=== PATIENT | male | born 1980 | race American Indian/Alaskan Native ===

== ENCOUNTER 2016-07-06 09:06 | Emergency (ER) | payer BC ==
[2016-07-06] MEDS ORDERED: NORMAL SALINE 10 ML SYRINGE FLUSH IVP PRN (09:15)
[2016-07-06] MEDS ORDERED: Sodium Chloride 0.9% 1,000 ML PRIMARY IV ONE (09:15)
[2016-07-06 09:25] LABS: BASOPHILS # (AUTO) 0.03 10*3/UL; BASOPHILS % (AUTO) 0.4 % (0-1); EOSINOPHILS % (AUTO) 0.4 % (0-8); HEMATOCRIT 47.3 % (42.0-52.0); HEMOGLOBIN 16.3 g/dL (14.0-18.0); IMM GRAN % (AUTO) 0.7 % (0-5); IMM GRAN# (AUTO) 0.05 10*3/UL; LYMPHOCYTES % (AUTO) 21.4 % (10-50); MEAN CORPUSCULAR HEMOGLOBIN 28.2 PG (27-31); MEAN CORPUSCULAR HGB CONC 34.5 g/dL (33-37); MONOCYTES # (AUTO) 0.12 10*3/UL (0.3-0.8); MONOCYTES % (AUTO) 1.6 % (5-15); NEUTROPHILS # (AUTO) 5.64 10*3/UL; NEUTROPHILS % (AUTO) 75.5 % (50-80); RDW COEFFICIENT OF VARIATION 14.9 % (11.5-14.5); RED BLOOD COUNT 5.77 10^6/uL (4.70-6.10); WHITE BLOOD COUNT 7.47 10^3/uL (4.8-10.8)
[2016-07-06 09:28] VITALS: RESP 24; TEMP 97.4
[2016-07-06 09:28] LABS: PLATELET MORPHOLOGY COMMENT NORMAL MORPHOLOGY (NORM)
[2016-07-06 09:31] LABS: ASPARTATE AMINO TRANSFERASE 58 IU/L (21-57); BILIRUBIN,TOTAL 0.3 mg/dL (0.3-1.2); BLOOD UREA NITROGEN 9 mg/dL (7-22); CALCIUM 8.1 mg/dL (8.7-10.7); CHLORIDE 112 meq/L (98-112); CREATININE 0.9 mg/dL (0.70-1.50); EST GLOMERULAR FILTRATION > 60 (>60 ml/min/1.73m(2)); GLUCOSE 152 mg/dL (78-110); POTASSIUM 4.1 meq/L (3.8-5.2); SODIUM 149 meq/L (135-145); TOTAL PROTEIN 7.8 g/dL (6.1-8.0)
--- NOTE | 2016-07-06 09:31 | EKG ---
[address] [address] Measurements Intervals [place] Rate: 95 P: 52 [place]: 150 QRS: 85 QRSD: 94 T: 34 QT: 347 QTc: 400 Interpretive Statements SINUS RHYTHM NONSPECIFIC T-WAVE ABNORMALITY No previous ECG available for comparison Electronically Signed On 07-07-16 11:54:36 MST by Stefan Cifuentes [email or web address]
[2016-07-06 09:55] LABS: SERUM ALCOHOL 428 mg/dL (0-10)
[2016-07-06 10:44] LABS: BILIRUBIN,URINE NEGATIVE (NEG); CLARITY,URINE CLEAR (CLEAR); GLUCOSE, URINE (UA) NEGATIVE (NEG); LEUKOCYTE ESTERASE ,URINE NEGATIVE (NEG); NITRATE,URINE NEGATIVE (NEG); OCCULT BLOOD,URINE MODERATE (NEG); PH,URINE 5.5 (5.0-8.5); PROTEIN,URINE NEGATIVE (NEG); UROBILINOGEN,URINE 0.2 EU/dL (0.2)
[2016-07-06] MEDS ORDERED: Sodium Chloride 0.9% 1,000 ML, Magnesium Sulfate 2gm (Premix) 50 ML with Multivitamin I... IV ONE ×5 (10:45)
[2016-07-06 10:46] LABS: URINE SAMPLE TYPE CATH SPECIMEN
--- NOTE | 2016-07-06 10:56 | DI ---
CT HEAD W/O CONTRAST,07/06/2016 9:17 AM: Clinical History: In paired level of consciousness. Previous Exam: None at this facility. Findings: Multiple helically acquired CT images are obtained through the brain without contrast, and demonstrat e a soft tissue density filling the left maxillary sinus. The ventricles and other CSF containing spaces are normal and symmetric. There is no mass, hemorrhage or midline shift. Surrounding soft tissue and osseous structures are unremarkable. Impression: No acute intracranial pathology. Soft tissue density filling the left maxillary sinus most consistent with maxillary sinusitis. Correl ate clinically.
[2016-07-06 10:59] LABS: CANNABINOID SCREEN,URINE NEGATIVE (NEG); COCAINE SCREEN NEGATIVE (NEG); METHAMPHETAMINES SCREEN,URINE NEGATIVE (NEG); URINE SPECIFIC GRAVITY - MAN 1.009
--- NOTE | 2016-07-06 15:21 | PDOC ---
Altered Mental Status HPI - General Chief Complaint: Drug / Alcohol Use &/or Abuse Stated Complaint: UNRESPONSIVE Date Seen by Provider: 07/06/16 Time Seen by Provider: 09:06 Source: POSITIVE: Patient, EMS, Other (Coworker) Exam Limitations: POSITIVE: No limitations Nurse's Notes Reviewed & Considered: Yes EMS Report Reviewed & Considered: Verbal - History of Present Illness Initial Comments: The patient is a 36-year-old male. He arrives to the emergency room by ambulance. 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 He is staying in a motel. He and his coworkers went out for night on the town last night and were drinking heavily. This morning he did not show up for work and his boss went to check on him in his room and found him lying in bed unresponsive. Coworkers tried to revive him by splashing cold water on his face but he would not respond. They called the ambulance service. Paramedics noted that the patient was breathing spontaneously and had a blood pressure 121/87 and a strong pulse. Temperature 97.4. Oxygen saturation on 2 L of oxygen was 100%. He smells very heavily of alcohol. Body Location Affected: REPORTS: Other (As above; no signs of trauma.) Timing: REPORTS: Gradual Duration: Unknown Severity: Moderate Quality: REPORTS: Other (No apparent pain anywhere) Character of AMS: REPORTS: Decreased Responsiveness (Withdraws to noxious stimuli. Would not respond to verbal stimuli on initial presentation) Additional Information: No review of systems or past medical history could be obtained by patient upon presentation due to his decreased level of responsiveness. 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 Ability to Stand, Decreased Ability to Walk, Multiple Falls, Off Balance, Fainting, Dizziness, Involuntary Movements, Seizure, Headache, Other Similar Symptoms Previously: No Recent Care Received: REPORTS: Denies Any Prior Injuries Related to Current Complaint?: No - Patient Home Medications Home Medications: Home Medications NK [No Home Medications Reported] 07/06/16 - Patient Allergies Allergies/Adverse Reactions: Allergies Allergy/AdvReac Type Severity Reaction Status Date / Time No Known Allergies Allergy Verified 07/06/16 09:12 Past Medical History - heen HEENT History: Denies History Cardiovascular History: Hypotension Respiratory History: Denies History Gastrointestinal History: Denies History Genitourinary History: Denies History Endocrine History: Denies History Musculoskeletal History: Denies History Neurological History: Denies History Blood Disorders: Denies History Psychiatric History: Denies History History of Sexually Transmitted Diseases: No Male Reproductive History: Denies History Cancer History: Denies History In Past Year Been Physically Harmed or Verbally Threatened: No History of Other Communicable Diseases: No History of Exposure to Communicable Disease: No Type of alcohol normally used: Hard Liquor Substance Use Type: None Previous Surgical History: No Past Medical History Reviewed: Reviewed - No Changes (Patient not initially able to give past medical history or review of systems due to his gross alcoholic intoxication. Patient was observed in the emergency room until 1520 and by that time he had sobered up enough to give information for past medical history and review of systems.) ROS - Limitations ROS Limitations: Intoxication Constitution: REPORTS: Denies Symptoms Cardiovascular: REPORTS: Denies Cardiac Symptoms Respiratory: REPORTS: Denies Resp Symptoms Neurological: REPORTS: Denies Neuro Symptoms Gastrointestinal: REPORTS: Denies GI Symptoms Endocrine: REPORTS: Denies Symptoms Musculoskeletal: REPORTS: Denies MS Symptoms Genitourinary: REPORTS: Denies Symptoms Eyes: REPORTS: Denies Symptoms ENT: REPORTS: Denies Symptoms Skin: REPORTS: Denies Skin Symptoms Lympathic: REPORTS: Denies Lympathic Symptoms Immunologic: POSITIVE: Denies Symptoms Psychiatric: POSITIVE: Denies Psych Symptoms Altered Mental Physical Exam - General Appearance General Appearance: POSITIVE: No Acute Distress, No Evidence of Trauma, Lethargic, Other (Grossly intoxicated with alcohol) - HEENT HEENT: POSITIVE: Head Inspection Nml, Eyes Inspection Nml, Ears Inspection Nml, Nose Inspection Nml, Oral/Dental Inspect. Nml, Pharynx Inspect. Nml, PERRL, EOMI - Pupil Size Pupil Size: 4 mm: Bilateral (PERRLA) - Neuro/Psych Neurological: POSITIVE: Confusion, Other (Decreased level of consciousness). NEGATIVE: Headache, Dizziness, Tingling, Numbness, Fainting, Difficulty Walking , Seizure Activity, Facial Asymmetry, Dysphagia, Weakness Cranial Nerves: POSITIVE: Normal As Tested, No Evidence of Acute CVA Cerebellar: POSITIVE: Normal As Tested Peripheral Exam: POSITIVE: No Motor Deficits, No Sensory Deficits, Reflexes Normal - Neck Neck: POSITIVE: Supple, Non Tender - Respiratory Respiratory: POSITIVE: No Respiratory Distress, Breath Sounds Normal - Cardiovascular CVS: POSITIVE: Regular Rate and Rhythm, Heart Sounds Normal Peripheral Pulses: Radial (R): 2+, Radial (L): 2+ - Abdomen Abdomen: Soft: (All Quadrants), Normal Bowel Sounds: (All Quadrants), Denies Tenderness: (All Quadrants), No Splenomegaly: (All Quadrants), No Hepatomegaly: (All Quadrants), No Guarding: (All Quadrants), No Rebound: (All Quadrants), No Palpable Pulse: (All Quadrants), No Palpabale Mass: (All Quadrants), No Distention: (All Quadrants), No Rigidity: (All Quadrants) - Skin Skin: POSITIVE: Normal for Race, No Rash, Warm, Dry - Extremities Extremity: Non-Tender: (All Extremities), Normal ROM: (All Extremities), Normal Inspection: (All Extremities) Altered Mental Status - Results Reviewed By Me Xrays/CTs/US Reviewed: Yes (CT scan of head without contrast normal) Discussed with Radiologist: Yes Lab Results Reviewed: Yes (home normal except blood alcohol 428) Lab Results:: Laboratory Results 07/06/16 07/06/16 Range/Units 08:58 10:36 WBC 7.47 (4.8-10.8) 10^3/uL RBC 5.77 (4.70-6.10) 10^6/uL Hgb 16.3 (14.0-18.0) g/dL Hct 47.3 (42.0-52.0) % MCV 82.0 (80-90) FL MCH 28.2 (27-31) PG MCHC 34.5 (33-37) g/dL RDW Std Deviation 44.6 (39-50) fL RDW Coeff of Perla 14.9 H (11.5-14.5) % Plt Count 317 (140-350) 10*3/uL MPV 9.0 (7.4-12.2) FL Immature Gran % (Auto) 0.7 (0-5) % Neut % (Auto) 75.5 (50-80) % Lymph % (Auto) 21.4 (10-50) % [place] % (Auto) 1.6 L (5-15) % Eos % (Auto) 0.4 (0-8) % Baso % (Auto) 0.4 (0-1) % Immature Gran # (Auto) 0.05 10*3/UL Neut # (Auto) 5.64 10*3/UL Lymph # (Auto) 1.60 10*3/uL [place] # (Auto) 0.12 L (0.3-0.8) 10*3/UL Eos # (Auto) 0.03 10*3/UL Baso # (Auto) 0.03 10*3/UL WBC Morphology Comment Normal morphology (NORM) Plt Morphology Comment Normal morphology (NORM) RBC Morph Comment Normal morphology (NORM) Sodium 149 H (135-145) meq/L Potassium 4.1 (3.8-5.2) meq/L Chloride 112 (98-112) meq/L Carbon Dioxide 20 L (23-33) meq/L Anion Gap 17 (5-20) BUN 9 (7-22) mg/dL Creatinine 0.9 (0.70-1.50) mg/dL Estimated GFR > 60 (>60 ml/min/1.73m(2)) BUN/Creatinine Ratio 10.00 (6-20) Glucose 152 H (78-110) mg/dL Calculated Osmolality 309.0 H (267-292) mOsm/kg Calcium 8.1 L (8.7-10.7) mg/dL Magnesium 2.3 (1.6-2.4) mg/dL Total Bilirubin 0.3 (0.3-1.2) mg/dL AST 58 H (21-57) IU/L ALT 41 (21-72) IU/L Alkaline Phosphatase 127 H (38-126) IU/L Total Protein 7.8 (6.1-8.0) g/dL Albumin 4.4 (3.5-4.8) g/dL Globulin 3.4 (2.50-4.10) g/dL Albumin/Globulin Ratio 1.20 L (1.3-2.0) mg/g TSH 0.506 (0.2700-4.2000) uIU/mL Ur Collection Type Cath specimen Urine Color Yellow Urine Clarity Clear (CLEAR) Urine pH 5.5 (5.0-8.5) Ur Specific [place] <=1.005 (1.005-1.030) U Specif Grav (Refrac) 1.009 Urine Protein Negative (NEG) mg/dl Urine Glucose (UA) Negative (NEG) mg/dL Urine Ketones Negative (NEG) Urine Occult Blood Moderate H (NEG) Urine Nitrate Negative (NEG) Urine Bilirubin Negative (NEG) Urine Urobilinogen 0.2 (0.2) EU/dL Ur Leukocyte Esterase Negative (NEG) Urine RBC None (NONE) /hpf Urine WBC None (NONE) Ur Squamous Epith Cells None (NONE) Ur Renal Epithelial Cell None (NONE) Urine Crystals None Urine Bacteria None (NONE) Urine Casts None (NONE) Urine Mucus None (NONE) Urine Trichomonas None (NONE) Urine Yeast None (NONE) Ur Culture Indicated? Culture not set Salicylates < 1.0 (0-20) mg/dl Urine Opiates Screen Negative (NEG) Ur Buprenorphine Negative (NEG) Ur Oxycodone Screen Negative (NEG) Urine Methadone Screen Negative (NEG) Ur Propoxyphene Screen Negative (NEG) Acetaminophen < 10.0 (0-30) ug/mL Barbiturate Screen Negative (NEG) U Tricyclic Antidepress Negative (NEG) Phencyclidine Screen Negative (NEG) Amphetamines Screen Negative (NEG) U Methamphetamines Scrn Negative (NEG) Benzodiazepines Screen Negative (NEG) Cocaine Screen Negative (NEG) U Marijuana (THC) Screen Negative (NEG) Serum Alcohol 428 H (0-10) mg/dL EKG Interpretation:: POSITIVE: Normal Sinus Rhythm, Normal Rate, Normal Intervals, Normal [place], Normal QRS, Normal ST/T - Patient's Progress Pain Medication Addressed: POSITIVE: Not Applicable School/Work Release Addressed: POSITIVE: Not Applicable Re-Examine Time:: 15:10 Re-Examine Comment: Patient observed in the emergency room until 1510. By this time patient is alert and able to answer questions appropriately. Patient medically stable for discharge to the custody of his boss or . Patient given a banana bag in the emergency room of 1000 L of normal saline, 2 g of magnesium sulfate, 100 mg of thiamine and 1 mg of folic acid. Status: POSITIVE: Improved, Re-Examined Treatment: POSITIVE: Thiamine Antibiotics Given: No - Consult Consult (If Yes, Name of Consulting MD & Time Called): No Counseled: POSITIVE: Patient, RE: Lab Results, RE: Radiology Results, RE: DX, RE : Need for F/U Patient Care Time - Estimated PCT Patient Care Time (In Minutes): 65 Vital Signs - Recent Vital Signs Vital Signs: Vital Signs (Last 8 hours) Temp Pulse Pulse Resp BP BP Pulse Ox 07/06/16 09:07 97.4 F 99 99 24 121/87 121/87 100 - VS Reviewed Vital Signs Reviewed: Yes Discharge Clinical Impression: Alcohol intoxication Discharge Disposition: Discharged to Home Condition: Stable Patient Instructions Given at Discharge: Alcohol Intoxication (ED) Additional Instructions: Avoid alcohol. Follow-up with your primary care provider. Return here anytime as necessary. Follow Up With: NONE,NONE [Primary Care Provider] - (Instructions as above. Follow-up with your primary care provider. Return here anytime as necessary.)
== END 2016-07-06 15:51 | disposition home or self-care (01) ==
LOC: ER 09:06
DX: F10.129 Alcohol abuse with intoxication, unspecified (principal)
CPT/HCPCS: 70450; 80053; 80305; 80320; 80329; 81001; 81003; 83735; 84443; 85025; 93005; 93010; 96361; 96365; 96366; 99284